=== PATIENT | female | born 1945 | race Caucasian/White ===

== ENCOUNTER 2020-07-05 12:48 | Emergency (ER) | payer MEDICARE, OTHER ==
[~2020-07-05 12:48] MED LIST: ASPIRIN EC81 MG PO; ATORVASTATIN CA10 MG PO; BASAGLAR K100 UNIT/1 SC; COREG12.5 MG PO; FEOSOL325 MG PO; GLIPIZIDE10 MG PO; NORVASC5 MG PO; NOVOLOG VI100 UNIT/1 SC; PLAVIX75 MG PO; PRILOSEC20 MG PO; SODIUM BICARBO650 M1 PO; SYNTHROID25 MCG PO; VICTOZA 2-0.6 MG/0.1 SC
[2020-07-05 13:47] LABS: BASOPHIL 0.6 % (0-2); EOSINOPHIL 2.1 % (0-7); HCT 38.5 % (37.0-47.0); HGB 12.4 g/dl (12.5-16.0); LYMPHOCYTE 13.7 % (15-48); MCH 28.8 pg (25.0-31.0); MCHC 32.2 g/dL (32.0-36.0); MCV 89.5 fL (78.0-100.0); MONOCYTE 6.7 % (0-12); MPV 10.6 fL (6.0-9.5); NEUTROPHIL 76.1 % (41-80); NRBC 0; PLT 223 K/uL (150-400); RDW 16.2 % (11.5-14.0); WBC 12.3 K/uL (4.0-10.5)
[2020-07-05 14:03] LABS: INR 1.09 (0.9-1.2); PROTHROMBIN TIME 13.4 SECONDS (11.4-13.6); PTT 29.5 SECONDS (22.2-34.7)
[2020-07-05 14:08] LABS: ALBUMIN 3.1 g/dL (3.4-5.0); BILIRUBIN - TOTAL 0.5 mg/dL (0.2-1.0); BUN/CREAT RATIO (CALC) 10.1 RATIO; CREATININE 2.68 mg/dL (0.51-0.95); GLOBULIN (CALCULATION) 4.6 g/dL; POTASSIUM 4.2 mmol/L (3.5-5.1); TOTAL PROTEIN 7.7 g/dL (6.4-8.2)
== END 2020-07-05 22:04 | disposition other institution (70) ==
LOC: FER 12:48
PROVIDERS: Emergency Medicine
DX: I21.4 Non-ST elevation (NSTEMI) myocardial infarction (principal); I25.2 Old myocardial infarction; I51.9 Heart disease, unspecified; E11.22 Type 2 diabetes mellitus with diabetic chronic kidney disease; N18.6 End stage renal disease; K21.9 Gastro-esophageal reflux disease without esophagitis; Z99.2 Dependence on renal dialysis; Z87.891 Personal history of nicotine dependence; Z88.5 Allergy status to narcotic agent; Z88.8 Allergy status to other drugs, medicaments and biological substances; Z79.899 Other long term (current) drug therapy; Z79.84 Long term (current) use of oral hypoglycemic drugs; Z79.82 Long term (current) use of aspirin
CPT/HCPCS: 36415; 71045; 80053; 84484; 85025; 85610; 85730; 93005; 96372; J1650; J1885

== ENCOUNTER 2021-01-02 07:47 | Emergency (ER) | payer MEDICARE, OTHER ==
[~2021-01-02] VITALS: Ht 134.6 cm; Wt 72.6 kg
[2021-01-02 08:43] LABS: BASOPHIL 0.6 % (0-2); EOSINOPHIL 3.8 % (0-7); HCT 35.9 % (37.0-47.0); HGB 11.3 g/dl (12.5-16.0); LYMPHOCYTE 11.5 % (15-48); MCH 30.1 pg (25.0-31.0); MCHC 31.5 g/dL (32.0-36.0); MCV 95.7 fL (78.0-100.0); MPV 12.2 fL (6.0-9.5); NEUTROPHIL 77.5 % (41-80); NRBC 0; PLT 194 K/uL (150-400); RBC 3.75 M/uL (4.20-5.40); RDW 14.3 % (11.5-14.0); WBC 14.1 K/uL (4.0-10.5)
[2021-01-02 09:07] LABS: BILIRUBIN - TOTAL 0.6 mg/dL (0.2-1.0); BUN/CREAT RATIO (CALC) 6.2 RATIO; C-REACTIVE PROTEIN 1.9 mg/dL (<=0.90); CREATININE 4.17 mg/dL (0.51-0.95); GLOBULIN (CALCULATION) 4.2 g/dL; MAGNESIUM 1.6 mg/dL (1.8-2.4); TOTAL PROTEIN 7.2 g/dL (6.4-8.2)
== END 2021-01-02 11:58 | disposition home or self-care (01) ==
LOC: FER 07:47
PROVIDERS: Emergency Medicine
DX: E11.22 Type 2 diabetes mellitus with diabetic chronic kidney disease (principal); N18.6 End stage renal disease; E87.70 Fluid overload, unspecified; Z88.6 Allergy status to analgesic agent; Z88.8 Allergy status to other drugs, medicaments and biological substances; Z99.2 Dependence on renal dialysis
CPT/HCPCS: 36415; 71250; 80053; 82728; 83540; 83605; 83735; 84145; 84484; 85025; 86140; 93005; U0002